=== PATIENT | female | born 1945 | race Caucasian/White ===

== ENCOUNTER 2019-07-23 14:19 | Emergency (ER) | payer OTHER ==
[2019-07-23 14:27] VITALS: BMI 30.4
--- NOTE | 2019-07-23 15:15 | PDOC ---
History of Present Illness - General Chief Complaint: Injury Stated Complaint: FALL/[employer] Time Seen by Provider: 07/23/19 14:47 - History of Present Illness Initial Comments: 07/23/19 15:36 73 yo F PMH HTN, a-fib on metoprolol and aspirin 81, not on blood thinners, ovarian cancer s/p b/l oopherectomy and VON in 1992, presenting after fall. Patient was in a grajeda to get to her car outside the hospital and tripped on the curb. No head trauma, no LOC, no prodromal syndromes. Specifically denies lightheadedness, dizziness, palpitations, chest pain, urinary symptoms. However, patient does not that over the past three days, she has developed bilateral edema in her legs. Further notes that she has had progressively worsening FUENTES over the past year, which has been particularly bad the past several weeks. Denies orthopnea. Past History - Past Medical History Allergies/Adverse Reactions: Allergies Allergy/AdvReac Type Severity Reaction Status Date / Time Sulfa (Sulfonamide Allergy Verified 07/23/19 14:27 Antibiotics) Home Medications: Ambulatory Orders Furosemide [Lasix] 40 mg PO DAILY #10 tablet 07/23/19 Cardiac Disorders: Yes (afib) COPD: Yes (ovarian) - Psycho Social/Smoking Cessation Hx Smoking History: Never smoked Have you smoked in the past 12 months: No Information on smoking cessation initiated: No Hx Alcohol Use: No Drug/Substance Use Hx: No Review of Systems - Review of Systems Comments:: 07/23/19 15:46 GENERAL/CONSTITUTIONAL: denies fever, chills, diaphoresis, generalized weakness , malaise, loss of appetite, weight change HEAD, EYES, EARS, NOSE AND THROAT: denies rhinorrhea, nasal congestion, throat pain, throat swelling, difficulty swallowing, mouth swelling, ear pain, eye pain , visual changes NEUROLOGIC: denies headache, focal weakness or paresthesias, dizziness, unsteady gait, seizure, mental status changes, bladder or bowel incontinence CARDIOVASCULAR:endorses peripheral edema. Denies chest pain, syncope, palpitations, irregular heart rate, lightheadedness RESPIRATORY: endorses shortness of breath over the past year and worsening FUENTES the past several weeks. Denies cough, shortness of breath, orthopnea, wheezing, stridor, hemoptysis GASTROINTESTINAL: denies abdominal pain, abdominal distension, nausea, vomiting , diarrhea, constipation, melena, hematochezia GENITOURINARY: denies dysuria, frequency, urgency, hesitancy, hematuria, flank pain, genital pain MUSCULOSKELETAL: denies myalgia, arthralgia, joint swelling, back pain, neck pain SKIN: denies rash, itching, pallor HEMATOLOGIC/IMMUNOLOGIC: denies easy bleeding, easy bruising, lymphadenopathy, frequent infections ENDOCRINE: denies unexplained weight gain, unexplained weight loss, heat intolerance, cold intolerance PSYCHIATRIC: denies anxiety, depression, suicidal or homicidal ideation, hallucinations *Physical Exam - Vital Signs Last Vital Signs Temp Pulse Resp BP Pulse Ox 97.3 F L 93 H 18 183/91 H 96 07/23/19 14:23 07/23/19 14:23 07/23/19 14:23 07/23/19 14:23 07/23/19 14:23 - Physical Exam 07/23/19 17:46 Gen: well-developed, well-nourished, NAD Neuro: AAOX4, CN II-XII intact, FTN intact, EOMI, PERRLA, 5/5 strength, SILT HEENT: atraumatic, normocephalic Neck: trachea midline, supple CV: regular rate, regular rhythm, no murmurs, rubs, or gallops Pulm: CTA b/l, no wheezing Abd: soft, non-distended, non-tender MSK: full ROM, intact pulses Extr: 2+ pitting edema to the knees bilaterally, no deformities Skin: warm, dry ED Treatment Course - LABORATORY CBC & Chemistry Diagram: 07/23/19 16:00 07/23/19 16:00 Medical Decision Making - Medical Decision Making 07/23/19 15:44 While fall appears purely mechanical, has had worsening and new bilateral pitting edema and progressively worsening FUENTES. R/o ACS and new onset CHF. - CBC, CMP - trop - CXR - BNP - acetaminophen for pain 07/23/19 15:49 EKG shows atrial fibrillation at 84 bpm, QRS 94, QTc 489 07/23/19 17:18 BNP 1560, no prior level. CXR with large heart, otherwise without acute pathology. 07/23/19 17:[address] Sheets's answering service (Dr. Holder), who recommends giving 40mg IV Lasix and taking 40mg Lasix daily until she can meet with Dr. Sheets. Recommends calling Friday to make an appointment as soon as possible. Will give 40 mg Lasix here and ten day supply of PO 40mg Lasix. Discharge - Discharge Information Problems reviewed: Yes Clinical Impression/Diagnosis: Fluid overload, Accident due to mechanical fall without injury Condition: Stable Disposition: HOME - Admission No - Additional Discharge Information Prescriptions: Furosemide [Lasix] 40 mg PO DAILY #10 tablet - Follow up/Referral Referrals: Ken Naqvi MD [Primary Care Provider] - - Patient Discharge Instructions Additional Instructions: You were seen after tripping and falling. You were found to have swelling in both legs, concerning for potential new or worsening heart failure. We spoke to Dr. Sheets's service, who recommend that you take 40mg of Lasix orally per day until you can meet with Dr. Sheets. Please call first thing Friday to make the soonest possible appointment. Follow up with your primary care doctor within one week. Return to the ED if you develop worsening symptoms. - Post Discharge Activity
[2019-07-23] MEDS ORDERED: ACETAMINOPHEN 500 MG TABLET (FP) PO ONE (15:36)
[2019-07-23] MEDS ORDERED: ACETAMINOPHEN 325 MG TABLET (FP) ONE (15:51)
[2019-07-23] MEDS ORDERED: BACITRACIN 15 GM TUBE TOPICAL OINTMENT TP ONE (16:21)
[2019-07-23] MEDS ORDERED: DIPHTH,PERTUSS(ACELL),TET 0.5 ML DISP.SYRIN IM ONE ×2 (16:21→17:16)
--- NOTE | 2019-07-23 16:22 | PDOC ---
Documentation entered by Xochitl Calvillo SCRIBE, acting as scribe for Sudhir Dawson MD. Sudhir Dawson MD: This documentation has been prepared by the Karli schroeder Adrianna, SCRIBE, under my direction and personally reviewed by me in its entirety. I confirm that the documentation accurately reflects all work, treatment, procedures, and medical decision making performed by me. Attending Attestation - Resident Resident Name: Gage Carrillo - [facility] HPI: The patient is a 73 year old female, with a significant PMH of Afib (aspirin), ovarian CA (s/p bilateral oophorectomy and VON), and HTN, presents to the ED s/ p mechanical trip and fall. Patent was rushing to get into her car in the hospital parking lot, when she tripped over the surb. Denies hitting her head, LOC, lightheadedness, dizziness, chest pain, or palpitations. She endorses an abrasion to the left anterior knee, but otherwise denies any acute complaints. Off note, patient complaints of recent increased dyspnea on exertion for several months, which has become progressively worse in the past few weeks. She endorses associated bilateral lower extremity edema over the past 3 days Allergies: Sulfa Surgical History: s/p bilateral oophorectomy and VON Social History: No toxic habits PCP: Dr. Rivera - Physicial Exam PE: Vitals: Triage vital signs reviewed General Appearance: No acute distress, well nourished, well developed Head: Atraumatic Neck: Supple; No nuchal rigidity Cardiac: +irregularly irregular. no murmurs, no rubs, no gallops Lungs: Clear to auscultation bilateral, good air movement bilaterally Extremities: +abrasion to the anterior left knee. Intact left extensor mechanism. Full range of motion to all extremities, no cyanosis, clubbing, or edema Skin: Warm and dry, no rashes or lesions, no rash, no petechiae Neuro: Strength intact to all extremities, Sensation intact to all extremities , gait normal Psych: Normal mood, normal affect - Medical Decision Making 73 year old female with history of Afib (aspirin), ovarian CA (s/p bilateral oophorectomy and VON), and HTN, presents s/p fall. Who is at all extramarital got it okay mechanical trip and fall with episode of palpitations earlier history of A. fib EKG demonstrates A. fib but rate controlled no ST elevations We will check labs chest x-ray mild contusion to the knee but full range of motion able to ambulate comfortably no suspicion for fracture at this time Dr. Kaufman to follow-up results if no acute findings patient can be discharged. Plan: labs, ECG, CXR, reassess 07/23/19 16:22 Heart Score/ECG Review - ECG Impressions Comment:: EKG performed at 14:50 07/23/2019 demonstrates rate of 78bpm, Atrial fibrillation , anterior infarct (age undetermined).
[2019-07-23 17:01] LABS: ALBUMIN 4.1 g/dl (3.4-5.0); BASO % 0.3 % (0-2.0); BILIRUBIN,TOTAL 0.8 mg/dL (0.2-1); BLOOD UREA NITROGEN 17.8 mg/dL (7-18); CREATININE 0.9 mg/dL (0.55-1.3); EOS % 1.3 % (0-4.5); HEMOGLOBIN 11.6 GM/dL (10.7-15.3); LYMPH % 11.9 % (8-40); MEAN PLT VOLUME 8.8 fl (7.5-11.1); MONO % 9.2 % (3.8-10.2); NEUT % 77.3 % (42.8-82.8); PLATELET COUNT 184 K/MM3 (134-434); POTASSIUM 4.1 mmol/L (3.5-5.1); RBC 3.98 M/mm3 (3.60-5.2); RDW 14.4 % (11.6-15.6); TOT PROT 7.4 g/dl (6.4-8.2); WHITE BLOOD COUNT 7.8 K/mm3 (4.0-10.0)
[2019-07-23 17:14] LABS: N-TERMINAL BNP 1560.9 pg/ml (5-125)
[2019-07-23] MEDS ORDERED: BACITRACIN 15 GM TUBE TOPICAL OINTMENT ONE (17:16)
[2019-07-23] MEDS ORDERED: FUROSEMIDE 40 MG/4 ML INJECTABLE VIAL IVPUSH ONE (17:42)
[2019-07-23] MEDS ORDERED: FUROSEMIDE 40 MG/4 ML INJECTABLE VIAL ONE (17:55)
[2019-07-23 18:15] VITALS: BP 135/68; PULSE 88; TEMP 98.1
--- NOTE | 2019-07-25 09:57 | EKG ---
Test Reason : Blood Pressure : / mmHG Vent. Rate : 078 BPM Atrial Rate : 340 BPM P-R Int : 000 ms QRS Dur : 094 ms QT Int : 432 ms P-R-T Axes : 000 046 027 degrees QTc Int : 492 ms ATRIAL FIBRILLATION ANTERIOR INFARCT (CITED ON OR BEFORE 05-OCT-2009) ABNORMAL ECG WHEN COMPARED WITH ECG OF 05-OCT-2009 17:32, QT HAS LENGTHENED Confirmed by JENS PAUL MD ([id number]) on 07/25/2019 9:56:34 AM Referred By: Confirmed By:JENS PAUL MD
== END 2019-07-23 18:25 | disposition home or self-care (01) ==
LOC: JER 14:19
PROC: 3E0234Z Introduction of Serum, Toxoid and Vaccine into Muscle, Percutaneous Approach (ICD-10-PCS; principal; 2019-07-23)
PROC: 3E033GC Introduction of Other Therapeutic Substance into Peripheral Vein, Percutaneous Approach (ICD-10-PCS; 2019-07-23)
DX: S80.212A Abrasion, left knee, initial encounter (principal); E87.70 Fluid overload, unspecified; W10.1XXA Fall (on)(from) sidewalk curb, initial encounter; Y93.89 Activity, other specified; Y92.238 Other place in hospital as the place of occurrence of the external cause; Y92.481 Parking lot as the place of occurrence of the external cause; Y99.8 Other external cause status; I10 Essential (primary) hypertension; I48.91 Unspecified atrial fibrillation; Z79.82 Long term (current) use of aspirin; Z85.43 Personal history of malignant neoplasm of ovary; Z90.710 Acquired absence of both cervix and uterus; Z90.79 Acquired absence of other genital organ(s); Z90.722 Acquired absence of ovaries, bilateral; Z88.2 Allergy status to sulfonamides
CPT/HCPCS: 36415; 71046-TC-FY; 80053; 82550; 83880; 84484; 85025; 90715; 93005; 93010; 99285-25

== ENCOUNTER 2021-09-14 02:26 | Emergency (ER) | payer OTHER ==
[2021-09-14 03:01] VITALS: BP 109/45; PULSE 88; TEMP 98.1; BMI 30.8
[2021-09-14 04:08] LABS: BASO % 0.4 % (0-2.0); EOS % 1.6 % (0-4.5); HEMATOCRIT 26.6 % (32.4-45.2); HEMOGLOBIN 8.9 GM/dL (10.7-15.3); LYMPH % 12.2 % (8-40); MCH 29.1 pg (25.7-33.7); MCHC 33.4 g/dl (32.0-36.0); MEAN CELL VOLUME 87.1 fl (80-96); MEAN PLT VOLUME 7.7 fl (7.5-11.1); MONO % 6.4 % (3.8-10.2); NEUT % 79.4 % (42.8-82.8); PLATELET COUNT 188 10^3/uL (134-434); RBC 3.05 M/mm3 (3.60-5.2); RDW 14.3 % (11.6-15.6); WHITE BLOOD COUNT 9.6 K/mm3 (4.0-10.0)
[2021-09-14] MEDS ORDERED: ACETAMINOPHEN 325 MG TABLET (FP) PO ONE (05:08)
[2021-09-14] MEDS ORDERED: ACETAMINOPHEN 325 MG TABLET (FP) ONE (05:09)
== END 2021-09-14 05:39 | disposition home or self-care (01) ==
LOC: JER 02:26
PROC: 0HQMXZZ Repair Right Foot Skin, External Approach (ICD-10-PCS; principal; 2021-09-14)
DX: I83.892 Varicose veins of left lower extremity with other complications (principal)
CPT/HCPCS: 36415; 85025; 99283-25

== ENCOUNTER 2022-01-15 22:49 | Emergency (ER) | payer OTHER ==
[2022-01-15 23:27] VITALS: BP 155/67; PULSE 82; RESP 17; TEMP 97.5; BMI 30.6
== END 2022-01-16 01:04 | disposition home or self-care (01) ==
LOC: JER 22:49
DX: I83.90 Asymptomatic varicose veins of unspecified lower extremity (principal)
CPT/HCPCS: 93971-TC; 99284-25

== ENCOUNTER 2023-01-21 10:20 | Emergency (ER) | payer OTHER ==
[2023-01-21 11:39] VITALS: RESP 18; BMI 31.1
[2023-01-21 12:12] LABS: BASO % 0.6 % (0-2.0); EOS % 1.4 % (0-4.5); HEMATOCRIT 28.2 % (32.4-45.2); HEMOGLOBIN 9.1 GM/dL (10.7-15.3); LYMPH % 14.4 % (8-40); MCH 27.8 pg (25.7-33.7); MCHC 32.4 g/dl (32.0-36.0); MEAN CELL VOLUME 85.9 fl (80-96); MEAN PLT VOLUME 8.1 fl (7.5-11.1); MONO % 8.8 % (3.8-10.2); NEUT % 74.8 % (42.8-82.8); PLATELET COUNT 193 10^3/uL (134-434); RBC 3.28 M/mm3 (3.60-5.2); RDW 14.8 % (11.6-15.6); WHITE BLOOD COUNT 8.1 K/mm3 (4.0-10.0)
[2023-01-21 12:20] LABS: INR 1.35 (0.83-1.09); PROTHROMBIN TIME (PATIENT) 15.6 SEC (9.7-13.0)
[2023-01-21 12:22] LABS: ACTIVATED PTT 33.3 SECONDS (25.2-36.5)
[2023-01-21 12:31] LABS: POTASSIUM 3.9 mmol/L (3.5-5.1)
[2023-01-21 12:33] LABS: ALBUMIN 3.4 g/dl (3.4-5.0); CALCIUM 8.7 mg/dL (8.5-10.1)
[2023-01-21 12:34] LABS: BLOOD UREA NITROGEN 21.5 mg/dL (7-18)
[2023-01-21 12:37] LABS: CREATININE 0.9 mg/dL (0.55-1.3)
[2023-01-21 12:38] LABS: TOT PROT 6.1 g/dl (6.4-8.2)
[2023-01-21 12:39] LABS: BILIRUBIN,TOTAL 0.5 mg/dL (0.2-1)
[2023-01-21 14:08] VITALS: BP 121/57; PULSE 81; TEMP 98.4
== END 2023-01-21 14:28 | disposition home or self-care (01) ==
LOC: JER 10:20
DX: I83.891 Varicose veins of right lower extremity with other complications (principal); S80.811A Abrasion, right lower leg, initial encounter; X58.XXXA Exposure to other specified factors, initial encounter; Z79.01 Long term (current) use of anticoagulants
CPT/HCPCS: 36415; 80053; 85025; 85610; 85730; 86850; 86900; 86901; 99283-25